=== PATIENT | female | born 1970 | race African-American/Black ===

== ENCOUNTER 2016-08-18 21:03 | Inpatient (IN) | payer OTHER ==
--- NOTE | ~2016-08-18 | CR72 ---
[facility] A Service of [facility] / [facility] RADIOLOGY TEXT RESULTS PATIENT: ALLIE SAUNDERS LOCATION: [address]17 : [birth year] UNIT #: [id number] AGE: [address]: Alverto Coffman MD SEX: F ORDER DR: [id number] [facility] [address] [place], [place] [address] [id number] I MR#: [id number] Acc #: [id number] NAME: ALLIE SAUNDERS : 1970 SEX: F STUDY DATE/TIME: 08/19/2016 12:47 UNIT: [facility] ROOM: [facility] STUDY DESCRIPTION: CR Chest Single View Portable Attending Physician: Alverto Coffman M.D. Ordering Physician: Nurys Monzon M.D. Primary Care Physician: No Primary Care Physician MEDICAL IMAGING REPORT This report is preliminary unless electronic signature is present EXAM Portable chest x-ray 08/19/2016 HISTORY Endotracheal tube placement. Dobbhoff tube placement. "Today." FINDINGS AP radiograph of the chest compared to 08/18/2016. Endotracheal tube terminates 1.2 cm above the tano. For placement in the mid thoracic trachea, it should be withdrawn approximately 1-2 cm and reassessed radiographically. The flexible feeding tube extends below the diaphragm and off the field of radiograph. Partially visualized weighted tip terminates at level of mid stomach. Heart upper limits of normal in size. Lungs moderately well-inflated. Marked worsening in appearance of the lungs. Extensive airspace disease throughout the left lung, increased, particularly at the left lung base. There continues to be relative sparing of the left lung apex. New extensive airspace disease in the right lung involving right upper, middle, and lower lobes with some areas of dense consolidation. Findings concerning for marked worsening of bilateral multifocal pneumonia. Given distribution of findings and the new findings on the right, correlate with any clinical concern for aspiration. No definite pleural effusion and no pneumothorax. Continued follow-up to resolution recommended. Dictated by... Farhad Coleman M.D. THIS IS AN ELECTRONICALLY VERIFIED REPORT Farhad Coleman M.D. at 08/20/2016 7:54 AM [facility] A Service of [facility] / [facility] RADIOLOGY TEXT RESULTS PATIENT: ALLIE SAUNDERS LOCATION: [facility]-17 : 74 UNIT #: [id number] AGE: [address]: Alverto Coffman MD SEX: F ORDER DR: Tiffanie TD: 08/19/2016 13:52 JOB #: [id number] MEDICAL IMAGING REPORT COPY
--- NOTE | ~2016-08-18 | CT57 ---
[facility] A Service of [facility] RADIOLOGY TEXT RESULTS PATIENT: ALLIE SAUNDERS [facility] UNIT #: [id number] AGE: [address]: Alverto Coffman MD SEX: F ORDER DR: [id number] [facility] [address] [place], [place] [address] [id number] I MR#: [id number] Acc #: [id number] NAME: ALLIE SAUNDERS : 1970 SEX: F STUDY DATE/TIME: 08/18/2016 20:53 UNIT: [facility] ROOM: [id number] STUDY DESCRIPTION: CT Chest Wo Cont Attending Physician: Alvaro Frey M.D. Ordering Physician: Cayetano Barkley M.D. Primary Care Physician: Primary Care Physician No MEDICAL IMAGING REPORT This report is preliminary unless electronic signature is present EXAM CT chest without IV contrast COMPARISON CT abdomen and pelvis without IV contrast on the same date. INDICATIONS 45-year-old female with hypotension and generalized weakness as well as cough for [address] exam was performed with one or more of the following radiation dose reduction techniques: Automatic exposure control, adjustment of mA and/or kV according to patient size, and iterative reconstruction. Axial CT imaging of the chest was performed without IV contrast. Coronal and sagittal reformats were constructed. Lack of IV contrast limits evaluation of adenopathy, vasculature and viscera. There is apparent right jugular venous distension. Given the configuration, adenopathy in the right lower neck cannot be excluded, incompletely imaged. There is mediastinal adenopathy, with a pretracheal lymph node measuring up to 1.3 cm, short axis. There is also an AP window lymph node measuring up to 1.4 cm, short axis. This is likely reactive as there is dense consolidation within the left lower lobe with internal air bronchograms. There is premature centrilobular emphysema within the pulmonary apices. There is minimal pleural-based ground-glass opacity in the anterior aspect of the right middle lobe abutting the pleura with other peripheral ground-glass opacities in the right middle lobe, largest of which measures up to 11 mm, and more focal somewhat nodular ground-glass opacity in the right lower lobe measuring up to 5 mm. There are other ground-glass opacities seen near the junction of the major and minor fissures on the right, measuring up to 9 mm, 7 mm, 7 mm and 7 mm. [facility] A Service of [facility] & [facility] RADIOLOGY TEXT RESULTS PATIENT: ALLIE SAUNDERS LOCATION: [facility]3-17 : 74 UNIT #: [id number] AGE: [address]: Alverto Coffman MD SEX: F ORDER DR: These are in a clustered distribution, likely infectious or inflammatory. There is normal heart size, without pericardial effusion. There is normal caliber of the thoracic aorta and pulmonary artery. There is a four-vessel aortic arch with takeoff of the left vertebral artery between the left common carotid and subclavian arteries. For findings below the diaphragm, please see separately dictated report of CT abdomen and pelvis on the same date. No acute fractures or suspicious osseous lesions. Airways appear widely patent. IMPRESSION 1. Dense consolidation with internal air bronchograms, nearly completely filling the left lower lobe, most consistent with a lobar pneumonia. There is actually a small associated left pleural effusion, which is seen layering more superiorly in the upper left chest. 2. Premature emphysema in the pulmonary apices, mild. There are ground-glass focal opacities seen within the right middle and lower lobes measuring up to approximately 1 cm. These appear to be post infectious or post inflammatory. Given emphysema, CT chest followup in 3 months without IV contrast is recommended to document stability or resolution. 3. Mediastinal adenopathy, with the largest lymph node measuring 1.4 cm in short axis in the AP window, likely reactive. 4. There is a density in the right lower neck, which is incompletely imaged, measuring up to 3.4 cm. This may represent a component of right internal jugular venous distension, but right cervical adenopathy cannot be excluded. Consider CT followup of this finding with CT soft tissue neck with IV contrast for definitive characterization. The mediastinal adenopathy can be followed in [address] as already recommended. 5. Not mentioned specifically in the body of the report, there is fluid distension of the distal esophagus. Ongoing aspiration cannot entirely be excluded. 6. For findings below the diaphragm, please see separately dictated report of CT abdomen and pelvis on the same date. Dictated by... Gautam Evans M.D. THIS IS AN ELECTRONICALLY VERIFIED REPORT Gautam Evans M.D. at 08/25/2016 3:43 PM BLM/psc TD: 08/19/2016 04:11 JOB #: [id number] MEDICAL IMAGING REPORT COPY
--- NOTE | ~2016-08-18 | OR ---
Unit #: [id number] #: [id number] Patient: ALLIE SAUNDERS [id number] [address] [address] [id number] I MR#: [id number] NAME: ALLIE SAUNDERS ROOM: [facility] Date of Procedure: 08/19/2016 Admission Date: 08/19/2016 Surgeon: Abbe Monzon M.D. : 1970 Attending Physician: Alverto Coffman M.D. PROCEDURE OPERATIVE NOTE PROCEDURE PERFORMED GlideScope intubation. PREOPERATIVE DIAGNOSES 1. Respiratory failure. 2. Septic shock. PREMEDICATIONS 1. Etomidate 20 mg IV x1. 2. Vecuronium 10 mg IV x1. DESCRIPTION OF PROCEDURE Patient was prepped and positioned in a proper way. She was preoxygenated and then premedicated with etomidate and vecuronium. Then, with GlideScope guidance, a 7.5 cm ET tube was inserted past the vocal cord with no complications. The tube was confirmed with a good CO2 color change and good bilateral breath sounds. The tube was connected to the ventilator and secured in place. A stat chest x-ray confirmed placement with no immediate complication. Dictated by... Jorge Alberto Harper TD: 08/19/2016 22:20 JOB #: [id number] PROCEDURE OPERATIVE NOTE X ABBE SERRATO MD PROCEDURE OPERATIVE NOTE
--- NOTE | ~2016-08-18 | CT4 ---
[facility] A Service of [facility] & [facility] RADIOLOGY TEXT RESULTS PATIENT: ALLIE SAUNDERS LOCATION: [facility]17 : 74 UNIT #: [id number] AGE: [address]: Alverto Coffman MD SEX: F ORDER DR: [id number] [facility] [address] [place], [place] [address] [id number] MR#: [id number] Acc #: [id number] NAME: ALLIE SAUNDERS : 1970 SEX: F STUDY DATE/TIME: 08/18/2016 20:53 UNIT: [facility] ROOM: [id number] STUDY DESCRIPTION: CT Abd and Pelv Wo Cont Attending Physician: Alvaro Frey M.D. Ordering Physician: Cayetano Barkley M.D. Primary Care Physician: Primary Care Physician No MEDICAL IMAGING REPORT This report is preliminary unless electronic signature is present EXAM CT abdomen and pelvis without IV contrast, 08/18/[address] chest without IV contrast. INDICATIONS 45 old female with generalized weakness, low back pain and flank pain for 3 days. Hypotension. TECHNIQUE This CT exam was performed with one or more of the following radiation dose reduction techniques: automatic exposure control, adjustment of mA and/or kV according to patient size, and iterative reconstruction. FINDINGS Axial CT imaging abdomen and pelvis was performed without IV contrast. Coronal and sagittal reformats were constructed. Lack of IV contrast limits evaluation of adenopathy, vasculature and viscera. For findings above the diaphragm please see separately dictated report of CT chest on the same date. The most significant finding is an area of consolidation filling the left lower lobe with internal air bronchograms highly suspicious for lobar pneumonia. There are other ground glass opacities in the right middle lobe and right lower lobe which are likely infectious or inflammatory, measuring up to approximately 1 cm. No acute fractures or suspicious osseous lesions. Gallbladder is fluid distended but otherwise unremarkable. Unenhanced liver, pancreas, spleen, adrenal glands and kidneys are unremarkable. No hydronephrosis, hydroureter or ureteral calculus. Urinary bladder is unremarkable. There are 2 right-sided tubal ligation clips, 1 which STS. [facility] A Service of [facility] & [facility] RADIOLOGY TEXT RESULTS PATIENT: ALLIE SAUNDERS [facility] 74 UNIT #: [id number] AGE: [address]: Alverto Coffman MD SEX: F ORDER DR: appears to be in the retrouterine pouch, which appears to be in ectopic position. No free fluid or pneumoperitoneum. No adnexal masses. No evidence of bowel obstruction. No evidence of acute appendicitis. Normal caliber of the abdominal aorta. There are minimal calcifications of the infrarenal abdominal aorta and common iliac arteries. No adenopathy within the abdomen or pelvis. IMPRESSION 1. Please see separate CT chest report of findings above the diaphragm. There is consolidative pneumonia, filling the left lower lobe and there are ground-glass opacities in the right middle lobe and right lower lobe which may be infectious or inflammatory. Imaging followup with CT chest in 3 months will be recommended to document stability of these right lung focal opacities given the patient's emphysema. 2. No definite acute findings in the abdomen. There is fluid distension of the gallbladder without evidence of acute cholecystitis. 3. The patient is post tubal ligation. One of the right-sided clips appears to be ectopically positioned and there is no left-sided tubal ligation clip. The left ovary does also appear to be in the left pelvis and this raises concern that the left fallopian tube has not been ligated. Dictated by... Gautam Evans M.D. THIS IS AN ELECTRONICALLY VERIFIED REPORT Gautam Evans M.D. at 08/21/2016 7:11 PM Ricky TD: 08/19/2016 04:43 JOB #: [id number] MEDICAL IMAGING REPORT COPY
--- NOTE | ~2016-08-18 | EKG ---
PATIENT: ALLIE SAUNDERS UNIT #: [id number] Ventricular Rate: 102 BPM Atrial Rate: 102 BPM P-R Interval: 180 ms QRS Duration: 88 ms Q-T Interval: 334 ms QTC Calculation(Bezet): 435 ms P [place]: 49 degrees Calculated R [place]: 28 degrees Calculated T [place]: 48 degrees Diagnosis Line: Sinus tachycardia Diagnosis Line: Otherwise normal ECG Diagnosis Line: No previous ECGs available Diagnosis Line: Confirmed by JONELLE GREEN MD ([id number]) on Diagnosis Line: 08/19/2016 11:57:09 AM INTERPRETING MD: ROSA
--- NOTE | ~2016-08-18 | CO ---
Unit #: [id number] #: [id number] Patient: ALLIE SAUNDERS [id number] [address] [address] [id number] I MR#: [id number] NAME: ALLIE SAUNDERS ROOM: [facility] Age: 45 Sex: F Admission Date: 08/19/2016 : 1970 Attending Physician: Alverto Coffman M.D. Requesting Physician: Alverto Coffman M.D. Consultation Date: 08/19/2016 CONSULTATION REPORT REASON FOR CONSULTATION Patient with acute renal failure, metabolic acidosis, septic shock, acute VT, and cardiogenic failure. HISTORY OF PRESENTING ILLNESS This patient is an unfortunate 45-year-old female who came in with left-sided chest pain, abdominal pain, and back pain. Patient was found to have pneumonia, acute VT, and hypotension with systolic pressures of 65. Patient was resuscitated with a couple liters of saline. Initial creatinine was 3.1 which improved to 1.8. Patient also coded (1) . Patient was taken to the cardiac general laborer and underwent intraaortic balloon pump and intravenous pacer placement. Patient was hypotensive requiring multiple pressors and seems to have an overall poor prognosis. Patient is still making urine. Creatinine has dropped to 1.8, and her bicarb is 14 and has wide anion gap acidosis with lactic acid of 3.9. PAST MEDICAL HISTORY Could not be obtained. FAMILY HISTORY Could not be obtained. SOCIAL HISTORY Could not be obtained. MEDICATIONS She is on vasopressin drip and Levophed. REVIEW OF SYSTEMS Could not be obtained. PHYSICAL EXAMINATION VITAL SIGNS: Blood pressure is 82/58. HEENT: Patient has dry mucosa. No oral exudate. NECK: Supple. Positive JVD. No bruit, no thyromegaly. CHEST: Coarse rhonchi. CARDIOVASCULAR: Regular rate and rhythm, tachycardic. No rub. ABDOMEN: Soft and nontender. Positive bowel sounds. EXTREMITIES: No peripheral edema. DIAGNOSTIC STUDIES LABORATORY: Sodium 135, potassium 5.2, chloride 107, bicarb 14, BUN 45, creatinine 1.8, glucose 121, and calcium 7. Lactic acid is 3.9. Troponin Unit #: [id number] #: [id number] Patient: ALLIE SAUNDERS 18.28. White cell count 11.7, hemoglobin 9.9, hematocrit 31.1, and platelets 200,000. ASSESSMENT Acute renal failure. Will start patient on a bicarbonate drip and give two amps of bicarbonate and calcium gluconate. Patient again went into cardiogenic failure and coded again and cardiopulmonary resuscitation is in progress. I will assist with the effort. Dictated by... Dorita Blood M.D. MICHAEL/betty TD: 08/19/2016 17:31 JOB #: [id number] CONSULTATION REPORT X Roya Blood MD X CONSULTATION REPORT
--- NOTE | ~2016-08-18 | OR ---
Unit #: [id number] #: [id number] Patient: ALLIE SAUNDERS [id number] [address] [place], [place] [address] [id number] I MR#: [id number] NAME: ALLIE SAUNDERS ROOM: [facility] Date of Procedure: 08/19/2016 Admission Date: 08/19/2016 Surgeon: Abbe Monzon M.D. : 1970 Attending Physician: Alverto Coffman M.D. PROCEDURE OPERATIVE NOTE PROCEDURE PERFORMED Left intrajugular hemodialysis catheter placement with ultrasound guidance. INDICATION FOR PROCEDURE Refractory acidosis with septic shock. DESCRIPTION OF PROCEDURE An informed consent was obtained from the patient's family after explaining the benefits and risks of this procedure. Patient was prepped and positioned in a proper way. Then chlorhexidine was applied to the left IJ and then a body drape was applied. With ultrasound guidance, a needle was inserted in the left IJ until blood flow was obtained. Then a guidewire was inserted and the needle was removed. Then a dilator was used and then a catheter was inserted over the guidewire and the guidewire was removed. The catheter was sutured in place and flushed appropriately. Patient tolerated her procedure well with no immediate complication. Dictated by... Abbe Monzon M.D. EA/betty TD: 08/19/2016 22:32 JOB #: [id number] PROCEDURE OPERATIVE NOTE X ABBE SERRATO MD X PROCEDURE OPERATIVE NOTE
--- NOTE | ~2016-08-18 | DS ---
Unit #: [id number] #: [id number] Patient: ALLIE SAUNDERS [id number] [address] [place], [place] [address] [id number] I MR#: [id number] NAME: ALLIE SAUNDERS ROOM: [facility] Age: 45 Sex: F Admission Date: 08/19/2016 : 1970 Discharge Date: 08/19/2016 Attending Physician: Alverto Coffman M.D. DISCHARGE SUMMARY SUMMARY DATE OF August 19, 2016 ADMITTING DIAGNOSES Left-sided thigh pain and sepsis with septic shock. FURTHER DIAGNOSES 1. Acute myocardial infarction, status post cardiac catheterization and stent placement, status post pacemaker placement. 2. Acute kidney injury. 3. Acute respiratory failure requiring intubation. 4. Unfortunately, patient on August 19 at [address] Pimentel. 2. Dr. Nurys Monzon. 3. Dr. Blood. HISTORY OF PRESENTING ILLNESS/HOSPITAL COURSE Patient is a 45-year-old lady who presented initially on the with the chief complaint of left-sided pain in the thigh. Initially, she was hypotensive. She was also noted to have hyperglycemia. She was started on insulin protocols, and she was started on IV fluids. During the hospital course, she was noted to have elevated troponins. Cardiology was consulted. Cardiology took her down for a cardiac cath. She had a stent placed, and subsequently she required pacemaker placement. She was intubated for acute respiratory failure. She coded that night. She did not have any wall motion on the echocardiogram, and she had significant wall motion abnormalities. She was not doing well, and finally the family decided to make her Do Not Resuscitate. Unfortunately, she on the same night of admission. All the family was informed. Dr. Siri Monzon was present at the time of the . Dictated by... Alverto Coffman M.D. PS/betty TD: 09/09/2016 20:48 JOB #: [id number] Unit #: [id number] #: [id number] Patient: ALLIE SAUNDERS DISCHARGE SUMMARY Page 1 of 1 X X DISCHARGE SUMMARY
--- NOTE | ~2016-08-18 | CO ---
Unit #: [id number] #: [id number] Patient: ALLIE SAUNDERS [id number] [address] [address] [id number] I MR#: [id number] NAME: ALLIE SAUNDERS ROOM: [facility] Age: 45 Sex: F Admission Date: 08/19/2016 : 1970 Attending Physician: Alverto Coffman M.D. Primary Care Physician: No Primary Care Physician Consultation Date: 08/19/2016 CONSULTATION REPORT REASON FOR CONSULT ICU management. HISTORY OF PRESENT ILLNESS This is a 45-year-old -[place] female with past medical history significant for hypertension, asthma and COPD, who presented to the emergency room with left-sided pain associated with cough and some subjective fever. Patient denied any nausea, vomiting or diarrhea. She has not been in the hospital over the last six months. Upon presentation to the ER, patient was found to be severely hypotensive with systolic blood pressure in the 60s. Patient had a central line placed and she was resuscitated with IV fluid and placed on pressors. By the time I evaluated the patient, she was very tachypneic with respiratory rate in the mid 30s. I discussed with the patient that she needs to be intubated REVIEW OF SYSTEMS A 12-point review of systems was obtained and was negative except for what was mentioned in HPI. PAST MEDICAL HISTORY 1. Hypertension. 2. Anxiety. 3. Asthma. 4. Chronic obstructive pulmonary disease. PAST SURGICAL HISTORY Tubal ligation. SOCIAL HISTORY The patient smokes a half pack per day. She drinks alcohol occasionally, no history of illicit drug use. FAMILY HISTORY Coronary artery disease. ALLERGIES Penicillin. Unit #: [id number] #: [id number] Patient: ALLIE SAUNDERS HOME MEDICATION Only Maxzide. PHYSICAL EXAMINATION GENERAL: The patient appears in acute respiratory distress. VITAL SIGNS: Blood pressure 91/52. Respiratory rate 36. O2 saturation 94. HEENT: Normocephalic and atraumatic. PERRLA. EOMI. NECK: Supple. No JVD. No lymphadenopathy. CHEST: Decreased breath sounds at the bases. HEART: S1, S2. No murmur, gallops or rubs. ABDOMEN: Soft, nontender. Bowel sound is positive. No hepatosplenomegaly. EXTREMITIES: No edema or cyanosis. SKIN: No rashes. WARD NURSE: Awake, alert, oriented x3. No focal motor/sensory deficit. DIAGNOSTIC STUDIES LABORATORY: Creatinine 3.1, potassium 5.2, hemoglobin 9.9. IMAGING: CT chest is consistent with left lower lobe pneumonia. ASSESSMENT 1. Acute hypoxic respiratory failure. 2. Septic shock. 3. Community-acquired pneumonia, likely streptococcus. 4. Acute kidney injury. 5. Metabolic acidosis. 6. Lactic acidosis. 7. Chronic anemia. PLAN 1. Patient is critical. She needs to be intubated even though she is still on just nasal cannula but the course of her disease is expected to deteriorate rapidly. I discussed with the family in full details and they are in agreement. 2. Will continue Levophed and hydration. 3. Will follow urine output and lactic acid very closely. 4. Bronchodilator and IV steroid. 5. Antibiotics pending culture. 6. DVT/GI prophylaxis. Critical care time spent on this patient is 45 minutes. Dictated by... Abbe Monzon M.D. EA/roselyn TD: 08/19/2016 21:56 JOB #: [id number] Unit #: [id number] #: [id number] Patient: ALLIE SAUNDERS CONSULTATION REPORT X ABBE SERRATO MD X CONSULTATION REPORT
--- NOTE | ~2016-08-18 | CO ---
Unit #: [id number] #: [id number] Patient: ALLIE SAUNDERS [id number] [address] [place], [place] [address] [id number] I MR#: [id number] NAME: ALLIE SAUNDERS ROOM: [facility] Age: 45 Sex: F Admission Date: 08/19/2016 : 1970 Attending Physician: Alverto Coffman M.D. Primary Care Physician: Primary Care Physician No Consultation Date: 08/19/2016 CONSULTATION REPORT REASON FOR CONSULTATION Cardiopulmonary arrest and ventricular tachycardia. HISTORY OF PRESENT ILLNESS This is a 45-year-old female, new to our group with a past medical history of hypertension, COPD, and active tobacco abuse. The patient does not follow with [employer] and has no history of myocardial infarction or prior ischemic workup. Risk factors for ischemic heart disease include hypertension and tobacco abuse. There is no documented family history of coronary artery disease. The patient presented to the hospital with complaints of back pain, cough, and weakness. She was treated at the [facility] and was found to have a low blood pressure. She was sent to the emergency department for further management. She is currently sedated on a ventilator and cannot provide information. Information has been obtained from her sister and daughter. According to her family, she has not had any reports of chest pain with rest or exertion. She has not had any reported dizziness, palpitations, or syncope. She does have some shortness of breath, which they relate to her COPD. In the emergency department, her temperature was 97.5, pulse 105, respirations 16, and blood pressure 65/37. Initial labs revealed a lactic acid of 3.5. Additional labs revealed white blood cell count of 12.8. Hemoglobin of 11.5. Creatinine was 3.1 with a BUN of 52. Her potassium was stable. Initial troponin was 0.06. INR was 1.2. Initial EKG revealed sinus tachycardia with a ventricular rate of 102 beats per minute. There were no acute ST or T-wave changes noted at baseline. She was started on normal saline, Levaquin, aspirin and Lovenox. She was ultimately placed on Levophed drip due to hypotension. She was admitted in the intensive care unit and was placed on BiPAP. Ultimately, she required intubation due to respiratory failure and hypoxia. After intubation she went into a wide-complex tachycardia followed by ventricular tachycardia. A CPR was completed and after one round there was return of spontaneous circulation. Cardiology was consulted post-arrest. Subsequent EKG was repeated at the bedside and revealed ST-elevation in the anterolateral leads. She was recommended for an emergent cardiac catheterization. She was given heparin bolus and full dose aspirin. The plan was discussed with her family and they were agreeable for cardiac catheterization. PAST MEDICAL HISTORY 1. Hypertension. Unit #: [id number] #: [id number] Patient: ALLIE SAUNDERS 2. COPD. 3. Active tobacco abuse. 4. Anxiety. PAST SURGICAL HISTORY with tubal ligation. HOME MEDICATIONS Hydroxyzine 25 mg p.o. t.i.d., clobetasol 60 g topical b.i.d., Maxzide 25 mg one tablet p.o. daily, Symbicort 160/4.5 mcg 2 puffs inhalation b.i.d. ALLERGIES Penicillin. SOCIAL HISTORY The patient is an active smoker and smokes half pack of cigarettes per day. She drinks alcohol occasionally, but no heavy use is reported. There are no reports of illicit drug use. FAMILY HISTORY Noncontributory for heart disease. REVIEW OF SYSTEMS Unable to obtain per the patient. Please see details in the H and P. PHYSICAL EXAMINATION VITAL SIGNS: Temperature 98.6, pulse 110, blood pressure 101/73. CONSTITUTIONAL: This is a 45-year-old female, who is ill appearing and on a ventilator. SKIN: Cold and mottled. NECK: Supple. Positive JVD. No hepatojugular reflux. Normal carotid upstrokes. No carotid bruits auscultated. HEART: S1 and S2. Tachycardic. No murmurs, rubs, or gallops. LUNGS: Bilateral breath sounds have scattered wheezes and rhonchi throughout. Respirations mildly labored. ABDOMEN: Soft, nontender, and nondistended. Positive bowel sounds auscultated x4 quadrants. No ascites noted. EXTREMITIES: Bilateral lower extremities have no pretibial pitting edema. DP and PT pulses are 2+. Capillary refill is less than 2 seconds. DIAGNOSTIC STUDIES LABORATORY RESULTS: White blood cell count 9.1, hemoglobin 9.9, hematocrit 29.8, platelets 160. Sodium 135, potassium 5.2, chloride 107, CO2 of 14, BUN 45, creatinine 1.8, glucose 121. INR 1.2. Troponin 0.06. CARDIOVASCULAR STUDIES: EKG revealed accelerated idioventricular rhythm. ST elevation noted in the anterolateral leads. IMAGING STUDIES: Chest x-ray revealed acute pulmonary edema, severe. On previous chest x-ray 08/18/2016 revealed extensive infiltrate in the left upper lobe and paralleling in the left lower lobe characteristics of pneumonia. CT of the chest without contrast on 08/18/2016 revealed dense consolidation nearly completely filling the left lower lobe most consistent with a pneumonia. Small associated left pleural effusion which was seen layering more superiorly in the upper left chest. Premature emphysema. Ground glass focal opacity seen within the right middle and Unit #: [id number] #: [id number] Patient: ALLIE SAUNDERS lower lobe measuring approximately [address] chest follow up in 3 months recommended. Mediastinal adenopathy with the largest lymph node measuring 1.4 cm, likely reactive. Density in the right lower neck which is incompletely imaged measuring up to 3.4 cm. It could represent a component of right internal jugular vein distention and the right cervical adenopathy cannot be excluded and fluid distention in the distal esophagus. Ongoing aspiration cannot entirely be excluded. CT of the abdomen and pelvis without contrast reveals no acute findings in the abdomen. Fluid distention of the gallbladder without evidence of acute cholecystitis. The patient has post tubal ligation. On the right side, clips appeared to be ectopically positioned. Left ovary does also appear to be in the left pelvis this raises concern that the left fallopian tube has not been ligated. IMPRESSION 1. Acute hypoxic respiratory failure. 2. Extensive left-sided pneumonia. 3. Elevated lactic acid with probable sepsis. 4. Status post cardiopulmonary arrest after intubation. 5. Acute anterolateral ST-elevation myocardial infarction. 6. Cardiogenic shock. Preliminary left ventricular ejection fraction 15% to 20% on bedside echo. No pericardial effusion. 7. Hypertension, on multiple pressors. 8. Acute kidney injury. 9. Mild hyperkalemia. 10. Anemia. 11. Chronic obstructive pulmonary disease. 12. Active tobacco abuse. PLAN 1. The patient presented to the hospital with complaints of back pain, weakness, and low blood pressure. She was admitted for suspected pneumonia and sepsis. 2. She was ultimately intubated and went into cardiopulmonary arrest due to ventricular tachycardia. 3. Cardiology was consulted post-arrest. EKG reveals an acute anterolateral ST-elevation myocardial infarction. 4. The patient is on Levophed for hypotension and has also been started on vasopressin and dopamine. 5. She has been given a full dose of aspirin and 4000 units of heparin. 6. She has been recommend to undergo an emergent cardiac catheterization. The situation has been discussed with family as well as risk and benefits and they verbalized understanding. 7. The patient will also need an intra-aortic balloon pump and transvenous pacemaker for further support. 8. The patient is in critical condition and prognosis is guarded at this time. Dictated by... Kathy Campo APRN for Jorge Alberto Verdugo TD: 08/22/2016 05:13 JOB #: [id number] Unit #: [id number] #: [id number] Patient: ALLIE SAUNDERS CONSULTATION REPORT X X CONSULTATION REPORT
--- NOTE | ~2016-08-18 | CR7 ---
[facility] A Service of [facility] RADIOLOGY TEXT RESULTS PATIENT: ALLIE SAUNDERS LOCATION: [address]-17 : [birth year] UNIT #: [id number] AGE: [address]: Alverto Coffman MD SEX: F ORDER DR: [id number] [facility] [address] [place], [place] [address] [id number] I MR#: [id number] Acc #: [id number] NAME: ALLIE SAUNDERS : 1970 SEX: F STUDY DATE/TIME: 08/19/2016 12:50 UNIT: [id number] ROOM: [facility] STUDY DESCRIPTION: CR Abdomen Single AP View Attending Physician: Alverto Coffman M.D. Ordering Physician: Nurys Monzon M.D. Primary Care Physician: Primary Care Physician No MEDICAL IMAGING REPORT This report is preliminary unless electronic signature is present EXAM Supine radiograph of the abdomen HISTORY Dobbhoff tube placement. FINDINGS Please see today's dedicated CT of chest for further evaluation. The endotracheal tube tip projects about 9 mm above the tano. For placement in mid thoracic trachea, it should be withdrawn approximately 2 cm and reassessed radiographically. Extensive bilateral airspace disease. See chest x-ray for further evaluation. Multifocal bilateral pneumonia favored. Flexible feeding tube extends below the diaphragm with tip terminating at level of mid gastric body. Bowel gas pattern shows air-filled mildly distended loops of small bowel in the visualized low abdomen and upper pelvis. Some air is seen in colon. The bowel gas pattern is nonspecific. It may be physiologic in nature. It may be a reflection of developing ileus or in the appropriate clinical context, small bowel obstruction could be considered. Wait should be given the clinical assessment. If it would assist in management, consider further small bowel imaging with CT. Dictated by... Farhad Coleman M.D. THIS IS AN ELECTRONICALLY VERIFIED REPORT Farhad Coleman M.D. at 08/20/2016 7:54 AM CECYK/melvin [facility] A Service of [facility] RADIOLOGY TEXT RESULTS PATIENT: ALLIE SAUNDERS [facility] UNIT #: [id number] AGE: [address]: Alverto Coffman MD SEX: F ORDER DR: TD: 08/19/2016 14:15 JOB #: [id number] MEDICAL IMAGING REPORT COPY
--- NOTE | ~2016-08-18 | HP ---
Unit #: [id number] #: [id number] Patient: ALLIE SAUNDERS [id number] [facility] [address] [place], [place] [address] [id number] MR#: [id number] NAME: ALLIE SAUNDERS ROOM: [id number] Age: 45 Sex: F Admission Date: 08/19/2016 : 1970 Attending Physician: Alvaro Frey M.D. Primary Care Physician: No Primary Care Physician HISTORY AND PHYSICAL CHIEF COMPLAINT Left-sided pain. HISTORY OF PRESENT ILLNESS The patient is a 45-year-old female who presents to [facility] emergency department with complaint of pain in her left thigh. She states that it started in her left mid to lower back and has come around to the front. It is also now in her left upper abdomen. It is associated with some dyspnea on exertion. She states it has been progressive over two days. No nausea or vomiting. She has had some associated diarrhea. PAST MEDICAL HISTORY Hypertension, anxiety disorder, asthma, COPD. PAST SURGICAL HISTORY Tubal ligation. SOCIAL HISTORY The patient smokes a half pack a day. Drinks alcohol occasionally. Denies illicit drug use. FAMILY HISTORY Patient denies any significant past medical family history. ALLERGIES Penicillin. HOME MEDICATIONS Maxzide 37.5/25. REVIEW OF SYSTEMS Ten point review of systems obtained and negative except as per HPI. PHYSICAL EXAMINATION VITAL SIGNS: Temperature 97.5, pulse 105, blood pressure range is 65/37 to 88/60. GENERAL: 55-year-old female in no acute distress, appears stated age. HEENT: Pupils equally round. Extraocular movements intact. Mucous membranes dry. NECK: Supple. No JVD or lymphadenopathy. CARDIAC: Regular rate and rhythm. No murmurs, gallops or rubs. LUNGS: Left lower lobe rales with equal air entry bilaterally. ABDOMEN: Nontender and nondistended. Positive bowel sounds. Unit #: [id number] #: [id number] Patient: ALLIE SAUNDERS EXTREMITIES: No clubbing, cyanosis or edema. SKIN: Warm and dry. No rashes, bruises or ulcers. PSYCH: Alert and oriented x3. Affect is appropriate. NEUROLOGIC: Cranial nerves II-XII intact grossly. Patient moves all extremities equal and with purpose. MUSCULOSKELETAL: No muscle or joint pain. No muscle or joint swelling. DIAGNOSTIC STUDIES LABORATORY STUDIES: Creatinine 3.1, bicarb 19, anion gap is 18. Lactic acid 3.5. Hemoglobin 11.5. IMAGING STUDIES: Shows left lower lobe pneumonia. ASSESSMENT AND PLAN 1. Septic shock: Patient's blood pressure upon presentation was 65 systolic. Patient has been started on normal saline, given a 30 mL/kg bolus and I have ordered an additional 2 L. She has been started on Levophed. Repeat lactic acid has been ordered. Central line placed and CVP and central venous oxygen have been ordered. 2. Pneumonia: The patient has been started on Rocephin and Levaquin for an ICU caliber pneumonia. 3. Acute kidney injury: The patient is being aggressively volume resuscitated. Recheck BMP in the morning. 4. Anion gap metabolic acidosis is likely multifactorial. This is secondary to her lactic acidosis and uremia. I have ordered a repeat for in the morning. Dictated by Jorge Alberto Puckett/lexa TD: 08/19/2016 05:34 JOB #: [id number] HISTORY AND PHYSICAL X Alvaro Frey MD X HISTORY AND PHYSICAL
--- NOTE | ~2016-08-18 | EKG ---
PATIENT: ALLIE SAUNDERS UNIT #: [id number] Ventricular Rate: 112 BPM Atrial Rate: 104 BPM P-R Interval: 150 ms QRS Duration: 12 ms Q-T Interval: 310 ms QTC Calculation(Bezet): 423 ms P [place]: -4 degrees Calculated R [place]: 0 degrees Calculated T [place]: 123 degrees Diagnosis Line: Atrial fibrillation Diagnosis Line: Indeterminate axis Diagnosis Line: Pulmonary disease pattern Diagnosis Line: ST elevation consider anterolateral injury or Diagnosis Line: acute infarct Diagnosis Line: * ACUTE NM Diagnosis Line: Abnormal ECG Diagnosis Line: When compared with ECG of 18-AUG-2016 19:49, Diagnosis Line: Significant changes have occurred Diagnosis Line: Confirmed by SINCERE BERNARD MD ([id number]) on 08/20/2016 Diagnosis Line: 7:26:56 PM INTERPRETING MD: MARCO ANTONIO CHRISTIANSON
--- NOTE | ~2016-08-18 | CR72 ---
[facility] of [facility] RADIOLOGY TEXT RESULTS PATIENT: ALLIE SAUNDERS [facility] UNIT #: [id number] AGE: [address]: Alverto Coffman MD SEX: F ORDER DR: [id number] [facility] [address] [place], [place] [address] [id number] I MR#: [id number] Acc #: [id number] NAME: ALLIE SAUNDERS : 1970 SEX: F STUDY DATE/TIME: 08/18/2016 20:05 UNIT: CEDOF ROOM: [id number] STUDY DESCRIPTION: CR Chest Single View Portable Attending Physician: Alvaro Frey M.D. Ordering Physician: Cayetano Barkley M.D. Primary Care Physician: No Primary Care Physician MEDICAL IMAGING REPORT This report is preliminary unless electronic signature is present EXAM Portable chest, 08/18/2016 HISTORY Cough and chest pain when taking deep breaths for 3 days. Benign essential hypertension. FINDINGS The heart is normal in size. There is extensive airspace consolidation within the left upper lobe and left lower lobe, characteristic of pneumonia. Minimal atelectasis right lung base. There are no pleural effusions. IMPRESSION Extensive infiltrate in the left upper lobe and primarily in the left lower lobe, characteristic of pneumonia. Dictated by... Landon Monroe M.D. THIS IS AN ELECTRONICALLY VERIFIED REPORT Landon Monroe M.D. at 08/19/2016 4:20 PM KRT/sunil TD: 08/19/2016 02:49 JOB #: [id number] MEDICAL IMAGING REPORT COPY
--- NOTE | ~2016-08-18 | EKG ---
PATIENT: ALLIE SAUNDERS UNIT #: [id number] Ventricular Rate: 106 BPM Atrial Rate: 63 BPM QRS Duration: 176 ms Q-T Interval: 418 ms QTC Calculation(Bezet): 555 ms Calculated R [place]: 58 degrees Calculated T [place]: 98 degrees Diagnosis Line: Ventricular-paced rhythm Diagnosis Line: Abnormal ECG Diagnosis Line: When compared with ECG of 19-AUG-2016 13:02, Diagnosis Line: (unconfirmed) Diagnosis Line: Electronic ventricular pacemaker has replaced Diagnosis Line: Sinus rhythm Diagnosis Line: Confirmed by SINCERE BERNARD MD ([id number]) on 08/20/2016 Diagnosis Line: 7:30:30 PM INTERPRETING MD: MARCO ANTONIO CHRISTIANSON
[2016-08-18 20:29] LABS: BASOPHIL% 0.1 % (0-2.5); DIFF IND NO; EOSINOPHIL% 0.5 % (0.0-7.0); HEMOGLOBIN 11.5 gm/dL (12.0-16.0); LYMPHOCYTE# 0.3 X10e3 (1.0-3.5); LYMPHOCYTE% 7.2 % (17.0-45.0); MEAN CELL VOLUME 93.6 FL (83-96); MEAN CORPUSCULAR HEMOGLOBIN 30.8 PG (28-34); MEAN CORPUSCULAR HGB CONC 32.9 g/dL (30-36); MONOCYTE# 0.2 X10e3 (0-1.0); MONOCYTE% 3.9 % (3.0-12.0); NEUTROPHIL# 4.2 X10e3 (1.5-7.1); NEUTROPHIL% 88.3 % (40-75); PLATELET COUNT 178 X10e3 (140-420); RED BLOOD COUNT 3.74 X10e (3.90-5.30); RED CELL DISTRIBUTION WIDTH 12.9 % (11.0-15.5); WHITE BLOOD COUNT 4.8 X10e3 (4.0-10.5)
[2016-08-18 20:39] LABS: INR 1.2; PARTIAL THROMBOPLASTIN TIME 33.3 SECONDS (23.5-31.3); PROTHROMBIN TIME (PATIENT) 12.4 SECONDS (9.6-11.5)
[2016-08-18 20:48] LABS: INFLUENZA A NEG (NEG); INFLUENZA B NEG (NEG)
[2016-08-18 20:53] LABS: ALBUMIN SERUM 2.9 g/dL (3.5-5.0); BILIRUBIN, DIRECT 0.3 mg/dL (0.0-0.2); BILIRUBIN,INDIRECT 0.4 mg/dL (0.0-0.9); BILIRUBIN,TOTAL 0.7 mg/dL (0.2-2.0); BUN/CREATININE RATIO 16.77; CALCIUM SERUM 8.5 mg/dL (8.4-10.2); CREATININE SERUM 3.1 mg/dL (0.6-1.4); GLOM FILT RATE Estimated 21.1 mL/min (>60); POTASSIUM 3.5 mmol/L (3.5-5.1); PROTEIN TOTAL SERUM 7.5 g/dL (6.0-8.3)
[2016-08-18 21:01] LABS: POC - CREATININE 3.03 mg/dL (0.44-1.03)
[~2016-08-18 21:03] MED LIST: ADVAIR 2501 DISK W/D; DYAZIDE 37.5/251 CAP; KEFLEX; TRIAMTERENE-HCT1 TA8 PO
[2016-08-18 22:10] LABS: %MB 9.7 % (0.0-4.0); MB 10.8 ng/ml
[2016-08-19 02:24] LABS: ARTERIAL BLD GAS O2 SATURATION 93.9 % (90.0-100.0); ARTERIAL BLOOD GAS ALLEN TEST NORMAL; ARTERIAL BLOOD GAS ART SITE LEFT RADIAL; ARTERIAL BLOOD GAS CARBOXY HB 0.6 %sat (0.0-9.0); ARTERIAL BLOOD GAS DELIVERY NASAL CANNULA; ARTERIAL BLOOD GAS HCO3 12.3 mmol/L; ARTERIAL BLOOD GAS MET HB 0.8 %sat (0.0-2.0); ARTERIAL BLOOD GAS PCO2 23.3 mmHg (35.0-45.0); ARTERIAL BLOOD GAS PO2 75.9 mmHg (80.0-100); ARTERIAL BLOOD GAS pH 7.331 (7.350-7.450); ARTERIAL DRAW? YES
[2016-08-19 04:37] LABS: URINE SOURCE CLEAN CATCH
[2016-08-19 04:44] LABS: URINE APPEARANCE CLOUDY; URINE BILIRUBIN NEG (NEG); URINE BLOOD 2+ (NEG); URINE COLOR YELLOW; URINE GLUCOSE NEG (NEG); URINE KETONE NEG (NEG); URINE LEUKOCYTE ESTERASE 1+ (NEG); URINE NITRATE NEG (NEG); URINE PROTEIN 1+ (NEG); URINE SPECIFIC GRAVITY 1.016 (1.003-1.035)
[2016-08-19 04:47] LABS: CULTURE INDICATED? YES; URINE BACTERIA AUWI 1+ (NEGATIVE); URINE SQUAMOUS EPITHELIAL CELL FEW /[HPF]
[2016-08-19 05:00] LABS: U HYALINE CASTS AUWI 0-2 /[LPF]
[2016-08-19 06:14] LABS: LEGIONELLA AG URINE NEG (NEG)
[2016-08-19] MEDS ORDERED: HYDROXYZINE HCL25 M1 PO (10:34)
[2016-08-19] MEDS ORDERED: CLOBETASOL 0.0560 GM TOP (10:34)
[2016-08-19] MEDS ORDERED: MAXZIDE-25 MG T1 TAB PO (10:34)
[2016-08-19] MEDS ORDERED: SYMBICORT INH (10:35)
[2016-08-19 11:05] LABS: HEMATOCRIT 29.8 % (35.0-45.0); HEMOGLOBIN 9.9 gm/dL (12.0-16.0); MEAN CELL VOLUME 94.2 FL (83-96); MEAN CORPUSCULAR HEMOGLOBIN 31.4 PG (28-34); MEAN CORPUSCULAR HGB CONC 33.4 g/dL (30-36); MEAN PLATELET VOLUME 9.4 FL (6.5-11.5); RED BLOOD COUNT 3.16 X10e (3.90-5.30); RED CELL DISTRIBUTION WIDTH 13.1 % (11.0-15.5)
[2016-08-19 11:06] LABS: WHITE BLOOD COUNT 9.1 X10e3 (4.0-10.5)
[2016-08-19 11:45] LABS: ALBUMIN SERUM 2.2 g/dL (3.5-5.0); BILIRUBIN,TOTAL 0.9 mg/dL (0.2-2.0); BUN/CREATININE RATIO 27.05; CALCIUM SERUM 6.8 mg/dL (8.4-10.2); CREATININE SERUM 1.7 mg/dL (0.6-1.4); GLOM FILT RATE Estimated 42.2 mL/min (>60); POTASSIUM 3.6 mmol/L (3.5-5.1); PROTEIN TOTAL SERUM 6.4 g/dL (6.0-8.3)
[2016-08-19 13:09] LABS: ARTERIAL BLD GAS O2 SATURATION 82.7 % (90.0-100.0); ARTERIAL BLOOD GAS CARBOXY HB 0.3 %sat (0.0-9.0); ARTERIAL BLOOD GAS HCO3 11.4 mmol/L; ARTERIAL BLOOD GAS MET HB 0.8 %sat (0.0-2.0); ARTERIAL BLOOD GAS PCO2 47.5 mmHg (35.0-45.0)
[2016-08-19 13:13] LABS: ARTERIAL BLOOD GAS PO2 75.3 mmHg (80.0-100); ARTERIAL BLOOD GAS pH 6.988 (7.350-7.450)
[2016-08-19 13:14] LABS: ARTERIAL BLOOD GAS ART SITE RIGHT FEMORAL; ARTERIAL BLOOD GAS DELIVERY VENT; ARTERIAL BLOOD GAS VENT MODE AC; ARTERIAL DRAW? YES
[2016-08-19 13:20] LABS: BASOPHIL% 0.2 % (0-2.5); EOSINOPHIL# 0.1 X10e3 (0-0.7); EOSINOPHIL% 0.6 % (0.0-7.0); HEMATOCRIT 31.1 % (35.0-45.0); HEMOGLOBIN 9.9 gm/dL (12.0-16.0); LYMPHOCYTE% 8.4 % (17.0-45.0); MEAN CELL VOLUME 96.1 FL (83-96); MEAN CORPUSCULAR HEMOGLOBIN 30.5 PG (28-34); MEAN CORPUSCULAR HGB CONC 31.7 g/dL (30-36); MEAN PLATELET VOLUME 9.1 FL (6.5-11.5); MONOCYTE# 0.5 X10e3 (0-1.0); MONOCYTE% 4.5 % (3.0-12.0); NEUTROPHIL# 10.1 X10e3 (1.5-7.1); NEUTROPHIL% 86.3 % (40-75); PLATELET COUNT 200 X10e3 (140-420); RED BLOOD COUNT 3.23 X10e (3.90-5.30); RED CELL DISTRIBUTION WIDTH 13.6 % (11.0-15.5); WHITE BLOOD COUNT 11.7 X10e3 (4.0-10.5)
[2016-08-19 13:22] LABS: DIFF IND YES
[2016-08-19 13:41] LABS: NUCLEATED RED BLOOD CELL 2 /100 (0); PLATELET ESTIMATE NORMAL (NORMAL); RBC NORMAL YES
[2016-08-19 14:17] LABS: CREATININE SERUM 1.8 mg/dL (0.6-1.4); GLOM FILT RATE Estimated 39.5 mL/min (>60)
[2016-08-19 14:18] LABS: POTASSIUM 5.2 mmol/L (3.5-5.1)
[2016-08-19 14:36] LABS: %MB 14.8 % (0.0-4.0); MB 286.2 ng/ml
[2016-08-19 15:44] LABS: ARTERIAL BLD GAS O2 SATURATION 77.1 % (90.0-100.0); ARTERIAL BLOOD GAS CARBOXY HB 0.1 %sat (0.0-9.0); ARTERIAL BLOOD GAS PCO2 45.2 mmHg (35.0-45.0)
[2016-08-19 15:46] LABS: ARTERIAL BLOOD GAS PO2 77.8 mmHg (80.0-100)
[2016-08-19 15:47] LABS: ARTERIAL BLOOD GAS ART SITE RIGHT FEMORAL; ARTERIAL BLOOD GAS DELIVERY VENT; ARTERIAL BLOOD GAS VENT MODE AC; ARTERIAL DRAW? YES
[2016-08-19 16:56] LABS: ARTERIAL BLOOD GAS HCO3 <10.0 mmol/L; ARTERIAL BLOOD GAS pH <6.775 (7.350-7.450)
[2016-08-19 16:58] LABS: ARTERIAL BLD GAS O2 SATURATION 83.8 % (90.0-100.0); ARTERIAL BLOOD GAS HCO3 <10.0 mmol/L; ARTERIAL BLOOD GAS PCO2 37.5 mmHg (35.0-45.0); ARTERIAL BLOOD GAS PO2 89.6 mmHg (80.0-100); ARTERIAL BLOOD GAS pH <6.775 (7.350-7.450)
[2016-08-19 16:59] LABS: ARTERIAL BLOOD GAS ART SITE ARTERIAL LINE; ARTERIAL BLOOD GAS DELIVERY VENT; ARTERIAL BLOOD GAS VENT MODE A/C; ARTERIAL DRAW? YES
== END 2016-08-19 20:15 | disposition expired | DRG 853 ==
LOC: CED 21:03 → CEDOF 08-19 00:03 → CICCU3 08-19 10:44
PROVIDERS: Emergency Medicine; Internal Medicine
PROC: 06HN33Z Insertion of Infusion Device into Left Femoral Vein, Percutaneous Approach (ICD-10-PCS; 2016-08-18)
PROC: B54CZZA Ultrasonography of Left Lower Extremity Veins, Guidance (ICD-10-PCS; 2016-08-18)
PROC: 0BH17EZ Insertion of Endotracheal Airway into Trachea, Via Natural or Artificial Opening (ICD-10-PCS; principal; 2016-08-19)
PROC: 02704DZ Dilation of Coronary Artery, One Artery with Intraluminal Device, Percutaneous Endoscopic Approach (ICD-10-PCS; 2016-08-19)
PROC: 027044Z Dilation of Coronary Artery, One Artery with Drug-eluting Intraluminal Device, Percutaneous Endoscopic Approach (ICD-10-PCS; 2016-08-19)
PROC: 5A1935Z Respiratory Ventilation, Less than 24 Consecutive Hours (ICD-10-PCS; 2016-08-19)
PROC: 02704ZZ Dilation of Coronary Artery, One Artery, Percutaneous Endoscopic Approach (ICD-10-PCS; 2016-08-19)
PROC: 05HN33Z Insertion of Infusion Device into Left Internal Jugular Vein, Percutaneous Approach (ICD-10-PCS; 2016-08-19)
PROC: B544ZZA Ultrasonography of Left Jugular Veins, Guidance (ICD-10-PCS; 2016-08-19)
PROC: 4A023N7 Measurement of Cardiac Sampling and Pressure, Left Heart, Percutaneous Approach (ICD-10-PCS; 2016-08-19)
PROC: B211YZZ Fluoroscopy of Multiple Coronary Arteries using Other Contrast (ICD-10-PCS; 2016-08-19)
PROC: B215YZZ Fluoroscopy of Left Heart using Other Contrast (ICD-10-PCS; 2016-08-19)
DX: A41.9 Sepsis, unspecified organism (principal); R65.21 Severe sepsis with septic shock; J96.01 Acute respiratory failure with hypoxia; I21.09 ST elevation (STEMI) myocardial infarction involving other coronary artery of anterior wall; I47.2 Ventricular tachycardia; I95.9 Hypotension, unspecified; E87.2 Acidosis; J13 Pneumonia due to Streptococcus pneumoniae; N17.9 Acute kidney failure, unspecified; J44.1 Chronic obstructive pulmonary disease with (acute) exacerbation; Z66 Do not resuscitate; I46.9 Cardiac arrest, cause unspecified; I10 Essential (primary) hypertension; E87.5 Hyperkalemia; D64.9 Anemia, unspecified; F17.200 Nicotine dependence, unspecified, uncomplicated; F41.9 Anxiety disorder, unspecified; J45.909 Unspecified asthma, uncomplicated; Z88.0 Allergy status to penicillin
CPT/HCPCS: 36600; 71010; 71250; 74000; 74176; 80048; 80053; 80076; 81003; 82550; 82553; 82565; 82803; 82947; 83605; 84484; 84703; 85025; 85027; 85347; 85610; 85730; 87040; 87077; 87086; 87449; 87493; 87804; 87899; 92950; 93005; 93308; 94002; 94003; 94640; 94660; 94760; 94761; 96360; 96361; 99291; C1769; C1874; C1876; C1887; C1894; C9460; J0171; J0461; J0696; J1265; J1644; J1650; J1720; J1940; J1956; J2060; J2250; J3010; J7060